=== PATIENT | male | born 1990 | race Caucasian/White ===

== ENCOUNTER 2021-02-20 12:02 | Emergency (ER) | payer OTHER, MEDICAID ==
[~2021-02-20] VITALS: Ht 182.9 cm; Wt 77.1 kg
[2021-02-20 12:02] VITALS: BP_SYST 125
[2021-02-20] MEDS ORDERED: LOPERAMIDE HCL 2 MG CAPSULE PO ONE (13:00)
[2021-02-20] MEDS ORDERED: ONDANSETRON HCL 4 MG/2 ML VIAL IVP ONE (13:00)
[2021-02-20 14:51] VITALS: BP_SYST 136
== END 2021-02-20 15:22 | disposition home or self-care (01) ==
LOC: SED 12:02
DX: F12.10 Cannabis abuse, uncomplicated (principal); Z88.6 Allergy status to analgesic agent
CPT/HCPCS: 96374; 99283; J2405

== ENCOUNTER 2021-10-18 09:51 | Emergency (ER) | payer OTHER, MEDICAID ==
[~2021-10-18] VITALS: Ht 182.9 cm; Wt 68.0 kg
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
--- NOTE | 2021-10-18 10:03 | NUR ---
DR CLAROS IN ROOM FOR EXAM.
[2021-10-18 10:05] VITALS: BP_SYST 134
[2021-10-18] MEDS ORDERED: DIPH-TET-PERTUS Vaccine 0.5 ML VIAL (ADACEL) I.M. ONE (10:15)
[2021-10-18] MEDS ORDERED: BACITRACIN ZINC 15 GM TOPICAL OINTMENT TP ONE (10:30)
[2021-10-18] MEDS ORDERED: BACITRACIN 1 GM OINT TP ONE (10:35)
--- NOTE | 2021-10-18 11:02 | NUR ---
WOUND CARE DONE BY EMT, PT TOLERATED WELL.
[2021-10-18 11:12] VITALS: BP_SYST 128
--- NOTE | 2021-10-18 11:13 | NUR ---
Patient given written and verbal discharge instructions and verbalizes understanding. ER MD discussed with patient the results and treatment provided. Patient in stable condition. Patient educated on pain management and to follow up with PMD. Pain Scale []. Opportunity for questions provided and answered. Medication side effect fact sheet provided.
== END 2021-10-18 11:13 | disposition home or self-care (01) ==
LOC: SED 09:51
DX: S61.210A Laceration without foreign body of right index finger without damage to nail, initial encounter (principal); Z88.8 Allergy status to other drugs, medicaments and biological substances; W45.8XXA Other foreign body or object entering through skin, initial encounter; Y93.89 Activity, other specified; Y92.89 Other specified places as the place of occurrence of the external cause; Y99.8 Other external cause status
CPT/HCPCS: 90715; 99283